=== PATIENT | male | born 1950 | race Hispanic/Latino ===

== ENCOUNTER → 2018-12-02 | Outpatient (CLI) | payer OTHER ==
[~2018-12-02] VITALS: Ht 170.2 cm; Wt 74.8 kg
[~2018-12-02] MED LIST: AMLO5TAB9 PO; HYDR-4060 PO; LEFL20TA18 PO; PRED5TAB PO; REGADENOSON 0.4 MG/5 ML PF SYG IVP SCH; TERA2CAP4 PO
== END | disposition home or self-care (01) ==
LOC: SHCH 09:30
PROVIDERS: ATTEND Internal Medicine Cardiovascular Disease
DX: I47.1 Supraventricular tachycardia (principal)
CPT/HCPCS: 78452; 93017; 96374; A9500 ×2; J2785

== ENCOUNTER → 2019-01-03 | Outpatient (CLI) | payer OTHER ==
[~2019-01-03] MED LIST changes: -REGADENOSON 0.4 MG/5 ML PF SYG IVP SCH
== END | disposition home or self-care (01) ==
LOC: SHCH 08:11
PROVIDERS: ATTEND Internal Medicine Cardiovascular Disease
DX: I47.1 Supraventricular tachycardia (principal); R06.00 Dyspnea, unspecified
CPT/HCPCS: 93306

== ENCOUNTER → 2022-12-01 | Outpatient (CLI) | payer OTHER ==
[~2022-12-01] MED LIST changes: +AMLO-257 PO; -AMLO5TAB9 PO; +REGADENOSON 0.4 MG/5 ML PF SYG IVP SCH
== END | disposition home or self-care (01) ==
LOC: SHCH 08:19
PROVIDERS: ATTEND Internal Medicine Cardiovascular Disease
DX: R06.02 Shortness of breath (principal); I47.1 Supraventricular tachycardia; R00.2 Palpitations; Z95.0 Presence of cardiac pacemaker; Z79.899 Other long term (current) drug therapy
CPT/HCPCS: 78452; 96374; 93017; J2785; A9500 ×2

== ENCOUNTER → 2024-02-26 | Outpatient (CLI) | payer OTHER ==
[~2024-02-26] MED LIST changes: -LEFL20TA18 PO; +LEFL20TA22 PO; -REGADENOSON 0.4 MG/5 ML PF SYG IVP SCH
== END | disposition home or self-care (01) ==
LOC: RAH 09:59
PROVIDERS: ATTEND Internal Medicine Cardiovascular Disease
DX: I51.89 Other ill-defined heart diseases (principal); I44.1 Atrioventricular block, second degree; I10 Essential (primary) hypertension; Z95.0 Presence of cardiac pacemaker
CPT/HCPCS: 93306

== ENCOUNTER 2024-03-31 05:36 | Day surgery (SDC) | payer OTHER ==
[2024-03-29 10:28] LABS: BASOPHILS # (AUTO) 0.08 K/uL (0.00-0.20); BASOPHILS % (AUTO) 0.8 % (0.0-5.0); EOSINOPHILS # (AUTO) 0.07 K/uL (0.00-0.70); EOSINOPHILS % (AUTO) 0.7 % (0.0-8.0); HEMATOCRIT 44.9 % (42-54); IMMATURE GRANULOCYTE ABSOLUTE 0.05 K/uL (0-1); LYMPHOCYTES # (AUTO) 4.8 K/uL (1.0-4.8); LYMPHOCYTES % (AUTO) 47.4 % (21.0-51.0); MEAN CORPUSCULAR HEMOGLOBIN 29.5 pg (27.0-33.0); MEAN CORPUSCULAR VOLUME 89.4 fL (79-99); MONOCYTES # (AUTO) 0.9 K/uL (0.1-1.0); MONOCYTES % (AUTO) 8.6 % (3.0-13.0); NEUTROPHILS # (AUTO) 4.3 K/uL (1.8-7.7); PLATELET COUNT (AUTO) 243 K/uL (130-400); RED BLOOD CELL COUNT(AUTO) 5.02 MIL/uL (4.50-6.20); RED CELL DISTRIBUTION WIDTH 15.4 % (11.0-15.5); WHITE BLOOD COUNT (AUTO) 10.2 K/uL (4.8-10.8)
[2024-03-29 10:31] VITALS: BP 119/60; PULSE 89; RESP 19
[2024-03-29 10:37] LABS: CREATININE 0.5 mg/dL (0.5-1.3); POTASSIUM 3.9 mmol/L (3.5-5.1)
[2024-03-29 10:39] LABS: INR <= 0.93 (0.85-1.15); PROTHROMBIN TIME 10.5 SEC (9.6-11.6)
[2024-03-29 10:40] LABS: PARTIAL THROMBOPLASTIN TIME 28.3 SEC (26.3-35.5)
[2024-03-31] VITALS (8 sets, daily range): BP systolic 97–125; BP diastolic 40–65; PULSE 65–79; RESP 13–20
[~2024-03-31] VITALS: Ht 167.6 cm; Wt 72.6 kg
[~2024-03-31 05:36] MED LIST changes: -AMLO-257 PO; +DILT300C42 PO; -TERA2CAP4 PO
[2024-03-31] MEDS ORDERED: BUPIVACAINE/PF 0.25% 30ML VIAL IJ ONE (08:33)
[2024-03-31] MEDS ORDERED: LIDOCAINE HCL 1% MDV 50ML VIAL ONE (08:33)
[2024-03-31] MEDS ORDERED: CEFAZOLIN SODIUM 1 GM VIAL ONE (08:33)
[2024-03-31] MEDS ORDERED: MEPERIDINE-PF 25 MG/ML SYG ONE ×3 (08:52→09:27)
[2024-03-31] MEDS ORDERED: MIDAZOLAM HCL 1 MG/ML 2ML VIAL ONE ×3 (08:53→09:27)
[2024-03-31] MEDS ORDERED: ONDANSETRON 4MG INJ ONE (08:54)
[2024-03-31] MEDS ORDERED: BACITRACIN 1 EACH PACKET TP ONE (09:46)
[2024-03-31] MEDS ORDERED: ACETAMINOPHEN WITH CODEINE 1 TAB TAB PO PRN (10:00)
[2024-03-31] MEDS ORDERED: ACETAMINOPHEN 500 MG TABLET PO PRN (10:00)
== END 2024-03-31 12:30 | disposition home or self-care (01) ==
LOC: DAH 05:36
PROVIDERS: ATTEND Internal Medicine Cardiovascular Disease
DX: Z45.010 Encounter for checking and testing of cardiac pacemaker pulse generator [battery] (principal); I44.1 Atrioventricular block, second degree; M06.9 Rheumatoid arthritis, unspecified; Z79.899 Other long term (current) drug therapy; Z79.01 Long term (current) use of anticoagulants
CPT/HCPCS: 33228; 36415; 80048; 85025; 85610; 85730; 93005; 99156; 99157; A4606; C1785; J0690; J2175; J2250; J2405; J3490; A4215; A4216; A4221; A4222; A4223; A4663; A6251; A6258; J0665